=== PATIENT | male | born 1980 | race Caucasian/White ===

== ENCOUNTER 2018-11-08 04:56 | Emergency (ER) | payer SELFPAY ==
[2018-11-08 05:07] VITALS: BMI 25.0
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
[2018-11-08] MEDS ORDERED: SODIUM CHLORIDE 1,000 ML IV STA (05:57)
[2018-11-08 06:42] LABS: BASO % 0.4 % (0-2.0); EOS % 0.8 % (0-4.5); HEMATOCRIT 44.5 % (35.4-49); HEMOGLOBIN 14.5 GM/dL (11.7-16.9); LYMPH % 30.4 % (8-40); MCH 28.8 pg (25.7-33.7); MCHC 32.6 g/dl (32.0-35.9); MEAN CELL VOLUME 88.4 fl (80-96); MONO % 7.8 % (3.8-10.2); NEUT % 60.6 % (42.8-82.8); PLATELET COUNT 232 K/MM3 (134-434); RBC 5.04 M/mm3 (4.00-5.60); RDW 14.4 % (11.9-15.9); WHITE BLOOD COUNT 6.7 K/mm3 (4.0-10.0)
[2018-11-08 07:02] LABS: ALBUMIN 4.5 g/dl (3.4-5.0); ALK PHOS 82 U/L (45-117); ANION GAP 7 MMOL/L (8-16); BILIRUBIN,TOTAL 0.3 mg/dL (0.2-1); BLOOD UREA NITROGEN 14 mg/dL (7-18); CALCIUM 8.9 mg/dL (8.5-10.1); CHLORIDE 106 mmol/L (98-107); CO2 30 mmol/L (21-32); CREATININE 0.9 mg/dL (0.55-1.3); GLUCOSE,RANDOM 93 mg/dL (74-106); POTASSIUM 4.4 mmol/L (3.5-5.1); SGOT/AST 28 U/L (15-37); SGPT/ALT 37 U/L (13-61); SODIUM 143 mmol/L (136-145)
--- NOTE | 2018-11-08 09:49 | PDOC ---
*Physical Exam - Vital Signs Last Vital Signs Temp Pulse Resp BP Pulse Ox 98.0 F 92 H 18 145/91 99 11/08/18 05:04 11/08/18 05:04 11/08/18 05:04 11/08/18 05:04 11/08/18 05:04 - Physical Exam General Appearance: Yes: Nourished, Appropriately Dressed HEENT: positive: EOMI, RONNELL, Other (Dry blood on lips. No lacerations. ) Neck: positive: Supple Respiratory/Chest: positive: Lungs Clear, Normal Breath Sounds Cardiovascular: positive: Regular Rhythm, Regular Rate, S1, S2 Vascular Pulses: Dorsalis-Pedis (R): 2+, Doralis-Pedis (L): 2+ Gastrointestinal/Abdominal: positive: Normal Bowel Sounds, Soft. negative: Distended, Guarding, Rebound Rectal Exam: positive: deferred Lymphatic: negative: Adenopathy Musculoskeletal: positive: Normal Inspection. negative: CVA Tenderness Extremity: positive: Normal Capillary Refill, Normal Inspection, Normal Range of Motion Integumentary: positive: Normal Color, Dry, Warm Neurologic: positive: audio tape librarian II-XII NML intact, Fully Oriented, Alert, Normal Mood/ Affect, Normal Response, Motor Strength 5/5 ED Treatment Course - LABORATORY CBC & Chemistry Diagram: 11/08/18 06:28 11/08/18 06:28 - ADDITIONAL ORDERS Additional order review: Laboratory Results 11/08/18 11/08/18 06:28 06:28 Sodium 143 Potassium 4.4 Chloride 106 Carbon Dioxide 30 Anion Gap 7 L BUN 14 Creatinine 0.9 Creat Clearance w eGFR > 60 Random Glucose 93 Calcium 8.9 Total Bilirubin 0.3 AST 28 ALT 37 Alkaline Phosphatase 82 Total Protein 8.0 Albumin 4.5 Salicylates < 1.7 L Acetaminophen < 10 L Alcohol, Quantitative 254.4 H 11/08/18 06:28 RBC 5.04 MCV 88.4 MCHC 32.6 RDW 14.4 MPV 8.0 Neutrophils % 60.6 Lymphocytes % 30.4 Monocytes % 7.8 Eosinophils % 0.8 Basophils % 0.4 - Medications Given in the ED: ED Medications Discontinued Medications Generic Name Dose Route Start Last Admin Trade Name Freq PRN Reason Stop Dose Admin Sodium Chloride 1,000 mls @ 1,000 mls/hr 11/08/18 05:57 11/08/18 06:31 Normal Saline - IV 11/08/18 06:56 1,000 mls/hr ASDIR STA Administration Medical Decision Making - Medical Decision Making Patient signed out to me from the night team. Labs WNL, Cat scans unremarkable. Patient is well appearing, can walk in a straight line, and requests discharge. Will let patient lie down in the ER for some more time and then DC him. *DC/Admit/Observation/Transfer Diagnosis at time of Disposition: Injury, Fall - Discharge Dispostion Disposition: HOME Condition at time of disposition: Stable Decision to Admit order: No - Referrals Referrals: [facility] [place] [facility] [place] [Provider Group] - Patient Instructions Printed Discharge Instructions: How to Prevent Falls, Alcohol Cessation Interventions May Reduce Postoperative Complications in P Additional Instructions: You came into the ER after you fell down and hit your head. We did a cat scan which showed you are not bleeding in your head. YOU NEED TO STOP DRINKING. Make sure to call your primary care doctor in the next 24 hours to schedule a follow up to make sure you are being taken care of. Come back to the ER if your pain worsens, you get a headache, become nauseous, start vomiting, or have any other new or worsening concerns. Thank you for coming to the [facility] ER. We hope you feel better soon! Print Language: TURKISH - Post Discharge Activity
[2018-11-08 10:48] VITALS: BP 130/78; PULSE 74; TEMP 98.4
== END 2018-11-08 10:15 | disposition home or self-care (01) ==
LOC: JER 04:56
PROC: 3E0337Z Introduction of Electrolytic and Water Balance Substance into Peripheral Vein, Percutaneous Approach (ICD-10-PCS; principal; 2018-11-08)
DX: F10.120 Alcohol abuse with intoxication, uncomplicated (principal); S09.8XXA Other specified injuries of head, initial encounter; W18.39XA Other fall on same level, initial encounter; Y93.89 Activity, other specified; Y92.89 Other specified places as the place of occurrence of the external cause; Y99.8 Other external cause status; Y90.8 Blood alcohol level of 240 mg/100 ml or more
CPT/HCPCS: 36415; 70450-TC; 72125-TC; 80053; 80307; 85025; 99283-25; J7030